=== PATIENT | female | born 1930 | race Caucasian/White ===

== ENCOUNTER 2017-12-24 14:35 | Inpatient (IN) | payer OTHER ==
[~2017-12-24] VITALS: Ht 165.1 cm; Wt 44.6 kg
[~2017-12-24 14:35] MED LIST: APRESOLINE10 MG PO; FOLIC ACID1 MG PO; HYDROCODON-ACE1 EAC7 PO; NORVASC10 MG PO; PLAVIX75 MG PO
[2017-12-24 15:48] LABS: BASOPHIL (%) 0.2 % (0-1); EOSINOPHIL (%) 0.2 % (0-5); HEMATOCRIT 28.1 % (36.0-46.0); HEMOGLOBIN 9.1 G/DL (11.9-15.5); IMMATURE GRANULOCYTE (%) 0.3 % (0.0-0.7); LYMPHOCYTE (%) 7.3 % (15-42); LYMPHOCYTE COUNT 0.5 K/uL (1.0-2.8); MCH 30.7 PG (29.0-34.0); MCHC 32.4 G/DL (30.0-36.0); MCV 94.9 FL (83-99); MONOCYTE (%) 3.4 % (3-12); MONOCYTE COUNT 0.2 K/uL (0-0.8); NEUTROPHIL (%) 88.6 % (45-76); NEUTROPHIL COUNT 5.7 K/uL (1.8-6.4); PLATELET COUNT 259 K/uL (156-360); RBC DIS.WIDTH-CV 13.8 % (11.8-14.6); RBC DIS.WIDTH-SD 47.8 % (39-53); RED BLOOD COUNT 2.96 M/uL (3.80-5.20); WHITE BLOOD COUNT 6.4 K/uL (4.1-10.2)
[2017-12-24 15:56] LABS: ALBUMIN 3.7 g/dL (3.2-4.8); CHLORIDE 100 mEq/L (99-109); POTASSIUM 3.3 mEq/L (3.7-5.4); SODIUM 143 mEq/L (136-147)
[2017-12-24 15:58] LABS: GLUCOSE 108 mg/dL (70-99)
[2017-12-24 15:59] LABS: TOTAL PROTEIN 7.4 g/dL (6.4-8.3)
[2017-12-24 16:00] LABS: TOTAL BILIRUBIN 0.5 mg/dL (0.0-1.0)
[2017-12-24 16:02] LABS: ALKALINE PHOSPHATASE 113 IU/L (3-129); CREATININE 0.8 mg/dL (0.6-1.3); GFR ESTIMATE (CALCULATED) > 59 mL/min/
[2017-12-24 16:03] LABS: UREA NITROGEN (BUN) 21 mg/dL (9-23)
[2017-12-24 16:04] LABS: AST (GOT) 28 IU/L (2-34)
[2017-12-24 16:05] LABS: ALT (GPT) 10 IU/L (3-49)
[2017-12-24 16:06] LABS: LIPASE 8 U/L (1.0-51.0)
[2017-12-24 16:11] LABS: TROP-I INTERPRETATION NEGATIVE; TROPONIN-I 0.03 ng/mL (0.0-0.30)
[2017-12-24] MEDS ORDERED: PEPCID20 MG PO (16:29)
[2017-12-24] MEDS ORDERED: ASPIR 8181 M1 PO (16:29)
[2017-12-24] MEDS ORDERED: LASIX40 MG PO (16:30)
[2017-12-24] MEDS ORDERED: SPIRIVA RESPIMAT4 GM IH (16:30)
[2017-12-24] MEDS ORDERED: DUONEB 2.5-0.5 M3 ML AEROSOL (16:31)
[2017-12-24] MEDS ORDERED: ATARAX,VISTARIL25 MG PO (16:32)
[2017-12-24] MEDS ORDERED: TYLENOL REGULA325 MG PO (16:33)
[2017-12-24] MEDS ORDERED: PHENERGAN25 MG PR (16:33)
[2017-12-24 16:49] LABS: APPEARANCE TURBID ((CLEAR)); BILIRUBIN NEGATIVE; BLOOD NEGATIVE; COLOR AMBER ((YELLOW)); GLUCOSE (STRIP) NEGATIVE; KETONES NEGATIVE; LEUKOCYTES LARGE; NITRITE NEGATIVE; PROTEIN (STRIP) >=500; SPECIFIC GRAVITY 1.017 (1.000-1.030); UROBILINOGEN 0.2 MG/DL (0.2-1.0)
[2017-12-24 17:01] LABS: RED BLOOD CELLS NONE SEEN /HPF (0-5)
[2017-12-24 17:02] LABS: AMORPHOUS PHOSPHATE CRYSTALS 1+; BACTERIA 2+ /HPF; EPITHELIAL CELLS NONE SEEN /HPF; MUCUS NONE SEEN /LPF; TRIPLE PHOSPHATE CRYSTALS 3+ /HPF; UCUL ADDED? YES; WHITE BLOOD CELLS 0-5 /HPF (0-5)
[2017-12-24 20:37] VITALS: BP 127/69
[2017-12-25] VITALS (7 sets, daily range): BP systolic 114–143; BP diastolic 42–91
[2017-12-25 06:10] LABS: BASOPHIL (%) 0.2 % (0-1); EOSINOPHIL (%) 0.4 % (0-5); HEMATOCRIT 24.1 % (36.0-46.0); HEMOGLOBIN 7.4 G/DL (11.9-15.5); IMMATURE GRANULOCYTE (%) 0.2 % (0.0-0.7); LYMPHOCYTE (%) 16.9 % (15-42); LYMPHOCYTE COUNT 0.9 K/uL (1.0-2.8); MCH 30.6 PG (29.0-34.0); MCHC 30.7 G/DL (30.0-36.0); MONOCYTE COUNT 0.4 K/uL (0-0.8); NEUTROPHIL (%) 75.3 % (45-76); NEUTROPHIL COUNT 3.9 K/uL (1.8-6.4); PLATELET COUNT 196 K/uL (156-360); RBC DIS.WIDTH-SD 51.1 % (39-53); RED BLOOD COUNT 2.42 M/uL (3.80-5.20); WHITE BLOOD COUNT 5.2 K/uL (4.1-10.2)
[2017-12-25 06:11] LABS: MCV 99.6 FL (83-99)
[2017-12-25 06:18] LABS: CHLORIDE 110 MEQ/L (99-109); CREATININE 0.7 MG/DL (0.6-1.3); GFR ESTIMATE (CALCULATED) > 59 mL/min/; GLUCOSE 92 mg/dL (70-99); SODIUM 145 MEQ/L (136-147); UREA NITROGEN (BUN) 21 mg/dL (9-23)
[2017-12-25 10:25] LABS: MAGNESIUM 1.8 mg/dl (1.3-2.7)
[2017-12-25 10:58] LABS: IMM.RETIC FRACTION 15.1 % (3-19); RETIC HGB EQUIVALENT 29.9 (28-36)
[2017-12-25 11:03] LABS: TRANSFERRIN (TIBC) 180.8 mg/dL (215-380)
[2017-12-25 11:05] LABS: IRON < 10 MCG/DL (35-150)
[2017-12-25 17:54] LABS: HEMATOCRIT 23.8 % (36.0-46.0); HEMOGLOBIN 7.4 G/DL (11.9-15.5); MCV 98.8 FL (83-99)
[2017-12-26] VITALS (7 sets, daily range): BP systolic 122–147; BP diastolic 58–79
[2017-12-26 01:33] LABS: BASE EXCESS -2.7 mEq/L (-3 to +3); BICARBONATE 24.3 mEq/L (22-26); CARBOXY HGB 1.4 % (0-5); METHEMOGLOBIN 1.2 % (0-1.5); PCO2 53 mm Hg (35-45); PO2 258 mm Hg (80-100)
[2017-12-26 01:35] LABS: DEVICE NRB MASK; O2 FLOW 15 L/MIN; SITE RR; pH 7.27 (7.35-7.45)
[2017-12-26 01:41] LABS: HEMOGLOBIN 8.5 G/DL (11.9-15.5); MCH 31.1 PG (29.0-34.0); MCHC 31.5 G/DL (30.0-36.0); MCV 98.9 FL (83-99); PLATELET COUNT 238 K/uL (156-360); RBC DIS.WIDTH-CV 14.2 % (11.8-14.6); RBC DIS.WIDTH-SD 51.5 % (39-53); RED BLOOD COUNT 2.73 M/uL (3.80-5.20); WHITE BLOOD COUNT 4.5 K/uL (4.1-10.2)
[2017-12-26 01:49] LABS: ALBUMIN 3.6 g/dL (3.2-4.8)
[2017-12-26 01:50] LABS: CHLORIDE 109 mEq/L (99-109); SODIUM 141 mEq/L (136-147)
[2017-12-26 01:50] LABS: PTT 30.6 SEC (25-37)
[2017-12-26 01:52] LABS: GLUCOSE 112 mg/dL (70-99); TOTAL PROTEIN 6.6 g/dL (6.4-8.3)
[2017-12-26 01:54] LABS: TOTAL BILIRUBIN 0.4 mg/dL (0.0-1.0)
[2017-12-26 01:55] LABS: ALKALINE PHOSPHATASE 103 IU/L (3-129)
[2017-12-26 01:56] LABS: CREATININE 0.7 mg/dL (0.6-1.3); GFR ESTIMATE (CALCULATED) > 59 mL/min/
[2017-12-26 01:57] LABS: AST (GOT) 20 IU/L (2-34); UREA NITROGEN (BUN) 15 mg/dL (9-23)
[2017-12-26 01:58] LABS: ALT (GPT) 9 IU/L (3-49)
[2017-12-26 01:59] LABS: POTASSIUM 3.7 mEq/L (3.7-5.4)
[2017-12-26 02:02] LABS: TROP-I INTERPRETATION NEGATIVE; TROPONIN-I 0.03 ng/mL (0.0-0.30)
[2017-12-26 06:56] LABS: HEMATOCRIT 22.3 % (36.0-46.0); MCH 30.1 PG (29.0-34.0); MCHC 30.5 G/DL (30.0-36.0); MCV 98.7 FL (83-99); PLATELET COUNT 199 K/uL (156-360); RBC DIS.WIDTH-CV 14.1 % (11.8-14.6); RBC DIS.WIDTH-SD 50.8 % (39-53); RED BLOOD COUNT 2.26 M/uL (3.80-5.20); WHITE BLOOD COUNT 3.3 K/uL (4.1-10.2)
[2017-12-26 07:02] LABS: HEMOGLOBIN 6.8 G/DL (11.9-15.5)
[2017-12-26 07:13] LABS: CHLORIDE 110 MEQ/L (99-109); CREATININE 0.6 MG/DL (0.6-1.3); GFR ESTIMATE (CALCULATED) > 59 mL/min/; GLUCOSE 96 mg/dL (70-99); POTASSIUM 3.3 MEQ/L (3.7-5.4); SODIUM 143 MEQ/L (136-147); UREA NITROGEN (BUN) 15 mg/dL (9-23)
[2017-12-27 03:26] VITALS: BP 140/66
[2017-12-27 07:40] VITALS: BP 144/70
[2017-12-27 11:47] VITALS: BP 109/58
[2017-12-27 16:24] VITALS: BP 117/58
[2017-12-27 20:37] VITALS: BP 136/72
[2017-12-28] VITALS: BP 145/63
[2017-12-28 04:00] VITALS: BP 110/68
[2017-12-28 08:12] VITALS: BP 138/72
[2017-12-28 16:17] VITALS: BP 127/57
[2017-12-28 19:59] VITALS: BP 106/63
[2017-12-28 22:03] LABS: C DIFF TOXIN NEGATIVE (NEGATIVE)
[2017-12-29] VITALS: BP 122/54
[2017-12-29 04:00] VITALS: BP 123/58
[2017-12-29 07:50] VITALS: BP 120/58
[2017-12-29 13:22] LABS: HEMATOCRIT 28.1 % (36.0-46.0); HEMOGLOBIN 8.7 G/DL (11.9-15.5); MCH 29.9 PG (29.0-34.0); MCV 96.6 FL (83-99); PLATELET COUNT 214 K/uL (156-360); RBC DIS.WIDTH-CV 13.4 % (11.8-14.6); RBC DIS.WIDTH-SD 47.6 % (39-53)
[2017-12-29 14:25] LABS: RED BLOOD COUNT 2.91 M/uL (3.80-5.20)
[2017-12-29 16:04] VITALS: BP 98/53
[2017-12-29] MEDS ORDERED: DUONEB 2.5-0.5 M3 ML AEROSOL (16:10)
[2017-12-29] MEDS ORDERED: FLORASTOR250 MG PO (16:10)
[2017-12-29] MEDS ORDERED: CEFEPIME HCL2 GM IV (16:10)
== END 2017-12-29 18:14 | DRG 193 ==
LOC: EME 14:35 → EDOF 16:55 → 5SOUTH 16:55 → ENRESERV 17:00 → 5SOUTH 20:08
PROVIDERS: Emergency Medicine; Hospitalist; Internal Medicine; Nurse Practitioner Adult Health
DX: J18.9 Pneumonia, unspecified organism (principal); Y95 Nosocomial condition; J44.0 Chronic obstructive pulmonary disease with (acute) lower respiratory infection; J96.21 Acute and chronic respiratory failure with hypoxia; E87.70 Fluid overload, unspecified; I48.91 Unspecified atrial fibrillation; E87.6 Hypokalemia; R63.4 Abnormal weight loss; Z68.1 Body mass index [BMI] 19.9 or less, adult; N31.9 Neuromuscular dysfunction of bladder, unspecified; R33.9 Retention of urine, unspecified; N81.10 Cystocele, unspecified; Z99.81 Dependence on supplemental oxygen; K52.9 Noninfective gastroenteritis and colitis, unspecified; I10 Essential (primary) hypertension; D50.9 Iron deficiency anemia, unspecified; N83.9 Noninflammatory disorder of ovary, fallopian tube and broad ligament, unspecified; R15.9 Full incontinence of feces; F17.210 Nicotine dependence, cigarettes, uncomplicated; Z86.73 Personal history of transient ischemic attack (TIA), and cerebral infarction without residual deficits
CPT/HCPCS: 36600; 71045; 74022; 74176; 74177; 80048; 80053; 80202; 81003; 82607; 82803; 82948; 83540; 83605; 83690; 83735; 84466; 84484; 85014; 85018; 85025; 85027; 85046; 85379; 85610; 85730; 86850; 86900; 86901; 87040; 87077; 87086; 87186; 87493; 87641; 93005; 94010; 94640; 94640 76; 94799; 99202; 99281; 99285; A6214; J0692; J1644; J1756; J1940; J3370; J3475; J3480; J7050; Q0177